=== PATIENT | male | born 1945 | race Caucasian/White ===

== ENCOUNTER → 2018-03-17 | Emergency (ER) | payer OTHER ==
[~2018-03-17] VITALS: Ht 160 cm; Wt 83.9 kg
[~2018-03-17] MED LIST: COZAAR50 MG
== END | disposition home or self-care (01) ==
LOC: ER 09:58
DX: D49.6 Neoplasm of unspecified behavior of brain (principal); R51 Headache; R11.2 Nausea with vomiting, unspecified
CPT/HCPCS: 70551